=== PATIENT | female | born 2005 | race Caucasian/White ===

== ENCOUNTER 2025-05-29 11:08 | Outpatient (AMB) | payer BC, MEDICAID, SELFPAY ==
--- NOTE | 2025-05-29 11:13 | MHC.PC.OV ---
Vital Signs 05/29/25 11:15 Height 5 ft 3.23 in Weight 120 lb 8 oz BMI 21.2 BP 99/65 Blood Pressure Location Rt brachial Position Supine Respiration 12 Pulse 101 H Pulse Source Pulse Oximeter Temp 98 F Temp Source Oral Pulse Oximetry (%) 100 Intake Visit Reasons: Est. Care Intake Note: New patient visit/CPE Property Clerk Required: No Allergies No Known Allergies Allergy (Verified 05/29/25 11:13) Tobacco use date assessed: 05/29/25 Dental Screening Dental Screen Date: 05/29/25 Did you have a dental visit in the last 12 months?: Yes Did you have a dental problem in the last 6 months where you did not have access to dental care?: No Was dental information given to patient?: Patient has dentist HPI HPI Comments History of Present Illness Details The patient is a 19 year old female with a past medical history of anemia presenting to [facility] Patient reports previously anemic. Periods have been somewhat heavy in though she feels at present fairly normal. She is not seeing a document control associate provider She fell on her tailbone when she was doing gymnastics a few years ago. 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 ROS CONSTITUTIONAL: Denies weight loss, fever and chills. HEENT: Denies changes in vision and hearing. RESPIRATORY: Denies SOB and cough. CV: Denies palpitations and CP GI: Denies abdominal pain, nausea, vomiting and diarrhea. : Denies dysuria and urinary frequency. MSK: see HPI SKIN: Denies rash and pruritus. NEUROLOGICAL: Denies headache PSYCHIATRIC: Denies recent changes in mood. PHYSICAL EXAM: GENERAL: Alert and oriented x 3. NAD EYES: EOMI. Anicteric. HENT: Moist mucous membranes. No scleral icterus. No cervical lymphadenopathy. LUNGS: Clear to auscultation bilaterally. CARDIOVASCULAR: Regular rate and rhythm. No murmur. No JVD. ABDOMEN: Soft, non-tender +bs EXTREMITIES: No edema. Non-tender. SKIN: No rashes or lesions. Warm. NEUROLOGIC: No focal neurological deficits. CN II-XII grossly intact PSYCHIATRIC: Cooperative. Appropriate mood and affect [facility] Social History Housing: House Patient Tobacco Use Status: Never used Tobacco e-Cigarette/Vaping Use: Never Used Second Hand Smoke Exposure: No service: No Current occupational status: student Current occupational exposures/hazards: No Cognitive needs: No Hearing needs: No Vision needs: No Questionnaire PHQ-9 Over the last 2 weeks, how often have you been bothered by any of the following problems? 1. Little interest or pleasure in doing things: not at all 2. Feeling down, depressed, or hopeless: not at all 3. Trouble falling or staying asleep, or sleeping too much: not at all 4. Feeling tired or having little energy: not at all 5. Poor appetite or overeating: not at all 6. Feeling bad about yourself - or that you are a failure or have let yourself or your family down: not at all 7. Trouble concentrating on things, such as reading the newspaper or watching television: not at all 8. Moving or speaking so slowly that other people could have noticed. Or the opposite - being so fidgety or restless that you have been moving around a lot more than usual: not at all 9. Thoughts that you would be better off or of hurting yourself in some way: not at all Total score: 0 Depression Screening Interpretation: Negative Depression Screening Done: Yes [id number] - PHQ-9 Billing: Yes Source: Developed by Drs. Yariel Urbina, Jayshree Woods, Terrance Galeano and colleagues, with an educational yanira from [employer]. Thrive Questionnaire I am a: Patient What is your living situation today?: I have a steady place to live Within the past 12 months, did the food you bought not last and you didn't have the money to get more?: Never true Within the past 12 months, did you worry whether your food would run out before you got money to buy more?: Never true Do you have trouble paying for medicines?: No Do you have trouble getting transportation to medical appointments?: No Do you have trouble paying your heating and electricity bill?: No Do you have trouble taking care of your child, family member or friend?: No Do you have trouble with day-to-day activities such as bathing, preparing meals, shopping, managing finances, etc.?: No Are you currently unemployed and looking for a job?: No Are you interested in more education?: No Please select the resources that you would like help with: None Currently or been in a relationship where the following occur: No concerns reported THRIVE Score: 0 AUDIT C Alcohol Use Questionnaire (AUDIT-C) 1. How often do you have a drink containing alcohol?: Never 3. How often do you have six or more drinks on one occasion?: Never Total Score: 0 EMRE-7 AMB Questionnaire EMRE-7 Feeling nervous, anxious, or on edge: 0 = Not at all Not being able to stop or control worryin = Not at all Worrying too much about different things: 0 = Not at all Trouble relaxin = Not at all Being so restless that it is hard to sit still: 0 = Not at all Becoming easily annoyed or irritable: 0 = Not at all Feeling afraid as if something awful might happen: 0 = Not at all Total EMRE-7 score (0-4 normal; 5-9 mild; 10-14 moderate; 15-21 severe): 0 Source: Developed by Drs. Yariel Urbina, Jayshree Woods, Terrance Galeano and colleagues, with an educational yanira from [employer]. Physical exam (Primary Care) Vital Signs: Last Vital Signs Temp 98 F 05/29/25 11:15 Pulse 101 H 05/29/25 11:15 Resp 12 05/29/25 11:15 BP 99/65 05/29/25 11:15 Pulse Ox 100 05/29/25 11:15 BMI result Body Mass Index 21.2 Tobacco/Smoking Status: Tobacco use Status Tobacco use date assessed 05/29/25 05/29/25 11:14 Patient Tobacco Use Status Never used Tobacco 05/29/25 11:14 e-Cigarette/Vaping Use Never Used 05/29/25 11:14 PHQ-9: PHQ-9 Score PHQ-9: Total score 0 05/29/25 11:23 Depression Screening Interpretation: Negative Currently or been in a relationship where the following occur: No concerns reported Coding Level of Care Code New Pt Prev Care 18-39yr([id number] Diagnoses Physical exam Z00.00 Sacral pain M53.3 Anemia, unspecified type D64.9 Anemia type: unspecified type Screening for metabolic disorder Z13.228 Screening for hyperlipidemia Z13.220 Additional Codes PHQ-9 - 14816 - PHQ-9 Billing: Yes ([id number]) Assessment & Plan Assessment & Plan (1) Physical exam: Code(s): Z00.00 - Encounter for general adult medical examination without abnormal findings (2) Sacral pain: Code(s): M53.3 - Sacrococcygeal disorders, not elsewhere classified Category: Medical (3) Anemia: Code(s): D64.9 - Anemia, unspecified Category: Medical Qualifiers: Anemia type: unspecified type Qualified Code(s): D64.9 - Anemia, unspecified (4) Screening for metabolic disorder: Code(s): Z13.228 - Encounter for screening for other metabolic disorders Category: Medical (5) Screening for hyperlipidemia: Code(s): Z13.220 - Encounter for screening for lipoid disorders Category: Medical Plan 19 year old to establish care/CPE Past medical, surgical. social reviewed. referral placed to document control associate Preventive measures for age discussed Anemia-check labs Sacral pain-xray is ordered. Orders: Orders Complete Blood Count Auto Diff Today D64.9 - Anemia, unspecified, R35.89 - Other polyuria, Z13.220 - Encounter for screening for lipoid disorders, Z13.228 - Encounter for screening for other metabolic disorders Lipid Panel Today D64.9 - Anemia, unspecified, R35.89 - Other polyuria, Z13.220 - Encounter for screening for lipoid disorders, Z13.228 - Encounter for screening for other metabolic disorders Comprehensive Met. Panel Today D64.9 - Anemia, unspecified, R35.89 - Other polyuria, Z13.220 - Encounter for screening for lipoid disorders, Z13.228 - Encounter for screening for other metabolic disorders IRON PROFILE Today D64.9 - Anemia, unspecified, R35.89 - Other polyuria, Z13.220 - Encounter for screening for lipoid disorders, Z13.228 - Encounter for screening for other metabolic disorders Vitamin B12 and Folate Today D64.9 - Anemia, unspecified, R35.89 - Other polyuria, Z13.220 - Encounter for screening for lipoid disorders, Z13.228 - Encounter for screening for other metabolic disorders XR sacrum coccyx min 2V Today M53.3 - Sacrococcygeal disorders, not elsewhere classified Vitamin D 1,25 dihydroxy Today D64.9 - Anemia, unspecified Referrals MATERIAL ASSEMBLER Referral N92.6 - Irregular menstruation, unspecified
[2025-05-29 11:15] VITALS: BP 99/65; PULSE 101; RESP 12; TEMP 36.6; O2SAT 100; BMI 21.2
--- OUTSIDE RECORDS SUMMARY | 2025-05-29 13:05 | XMS_ITS ---
Author Name [facility] Organization Unknown Care Team Organization Name Specialty Phone Email Start Date End Da te [facility] Celena Jaimes MD Primary Care 06/09/2022 01/18/2024
== END 2025-05-29 15:46 | disposition home or self-care (01) ==
LOC: HO.HMCFM 11:09
PROVIDERS: PCP Internal Medicine; Visit Provider Internal Medicine
DX: Z00.00 Encounter for general adult medical examination without abnormal findings (principal); M53.3 Sacrococcygeal disorders, not elsewhere classified; D64.9 Anemia, unspecified; Z13.228 Encounter for screening for other metabolic disorders; Z13.220 Encounter for screening for lipoid disorders

== ENCOUNTER → 2025-05-29 11:08 | Outpatient (BNVA) | payer BC, SELFPAY | PROVIDERS: Visit Provider Internal Medicine | DX: Z00.00 Encounter for general adult medical examination without abnormal findings (principal); M53.3 Sacrococcygeal disorders, not elsewhere classified; D64.9 Anemia, unspecified | CPT/HCPCS: 96127 ==